=== PATIENT | male | born 1955 | race Caucasian/White ===

== ENCOUNTER → 2025-02-21 09:44 | Outpatient (REF) | payer MEDICARE, SELFPAY ==
[2025-02-21 10:42] LABS: Hematocrit 47.6 % (39.0-52.0); Hemoglobin 16.1 g/dL (13.0-18.0); Mean Corp Hgb Conc. 33.8 g/dL (33.0-37.0); Mean Corpuscular Volume 84.0 fL (80.0-94.0); Nucleated Red Blood Cells % 0 % (-); Platelet Count 258 10^3/uL (130-400); Red Cell Dist. Width 12.9 % (11.5-14.5)
[2025-02-21 11:10] LABS: ALT (SGPT) 30 U/L (0-50); AST (SGOT) 25 U/L (17-59); Albumin 4.5 g/dl (3.5-5.0); Alkaline Phosphatase 77 U/L (38-126); Blood Urea Nitrogen 29 mg/dl (9-20); Calcium 9.9 mg/dl (8.4-10.2); Carbon Dioxide 23 mmol/L (22-30); Chloride 106 mmol/L (98-107); Glucose 200 mg/dl (70-99); Glycohemoglobin (HgbA1c) 10.8 % (4.0-5.6); HDL Cholesterol 36 mg/dl; LDL Cholesterol, Calculated 61 mg/dl; Potassium 4.2 mmol/L (3.5-5.1); Sodium 139 mmol/L (135-145); Total Protein 7.3 g/dl (6.3-8.2); Very Low Density Lipoprotein 44 mg/dl (0-30); eGFR 42.83
[2025-02-21 11:16] LABS: Microalbumin, Random Urine 4.3 mg/dl (0.6-1.7)
[2025-02-21 12:19] LABS: TSH 1.43 uIU/ml (0.47-4.68)
== END ==
LOC: REG 09:44
PROVIDERS: ATTENDING PHYSICIAN Family Medicine
DX: I10 Essential (primary) hypertension (principal); Z00.00 Encounter for general adult medical examination without abnormal findings; E11.65 Type 2 diabetes mellitus with hyperglycemia; R80.9 Proteinuria, unspecified; N18.31 Chronic kidney disease, stage 3a; I63.9 Cerebral infarction, unspecified; E13.319 Other specified diabetes mellitus with unspecified diabetic retinopathy without macular edema; G47.33 Obstructive sleep apnea (adult) (pediatric); E78.00 Pure hypercholesterolemia, unspecified
CPT/HCPCS: 36415; 80053; 80061; 82043; 83036; 84153; 84154; 84443; 85025